=== PATIENT | male | born 1960 | race African-American/Black ===

== ENCOUNTER 2017-10-20 11:51 | Emergency (ER) | payer MEDICAID ==
[~2017-10-20] VITALS: Ht 177.8 cm; Wt 79.8 kg
[2017-10-20] MEDS ORDERED: DIPHTH,PERTUSS(ACELL),TET TOX 0.5 ML DISP.SYRIN. VAX IM ONE (13:15)
[2017-10-20] MEDS ORDERED: IBUPROFEN 600 MG TABLET. PO ONE (13:15)
[2017-10-20] MEDS ORDERED: LIDOCAINE WITH 8.4% SOD BICARB 3 ML DISP.SYRIN. ONE (13:23)
[2017-10-20] MEDS ORDERED: LIDOCAINE WITH 8.4% SOD BICARB 3 ML DISP.SYRIN. INJ ONE (13:30)
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
[2017-10-20] MEDS ORDERED: AMOX1TAB61 PO (14:10)
[2017-10-20 14:26] VITALS: BP 146/91
== END 2017-10-20 14:28 | disposition home or self-care (01) ==
LOC: MERGE 11:51 → ER 11:51 → EDBD 11:51 → ER 14:28
DX: S61.214A Laceration without foreign body of right ring finger without damage to nail, initial encounter (principal); S60.412A Abrasion of right middle finger, initial encounter; F31.9 Bipolar disorder, unspecified; K02.9 Dental caries, unspecified; F10.20 Alcohol dependence, uncomplicated; F17.210 Nicotine dependence, cigarettes, uncomplicated; Z88.5 Allergy status to narcotic agent; Y90.9 Presence of alcohol in blood, level not specified; Y04.0XXA Assault by unarmed brawl or fight, initial encounter; Y93.89 Activity, other specified; Y92.89 Other specified places as the place of occurrence of the external cause; Y99.8 Other external cause status
CPT/HCPCS: 12001; 90471; 90715; 99284-25